=== PATIENT | male | born 1985 | race Caucasian/White ===

== ENCOUNTER 2016-04-22 08:27 | Emergency (ER) | payer MEDICAID ==
[2016-04-22 08:55] LABS: BASOPHILS 0.1 % (0.0-2.0); EOSINOPHILS 3.8 % (0-7); HEMATOCRIT 46.4 % (42.0-54.0); HEMOGLOBIN 16.4 g/dL (13.5-17.5); IMMATURE GRANULOCYTES 0.1 % (0-5); LYMPHOCYTES 26.3 % (15-50); MCH 31.1 pg (26.0-34.0); MCHC 35.3 g/dL (31.0-37.0); MEAN PLATELET VOLUME 11.2 fL (7.4-10.4); MONOCYTES 12.1 % (2-11); NEUTROPHILS 57.6 % (40-80); PLATELET COUNT 219 10x3/uL (130-400); RBC 5.27 10x6/uL (4.20-6.10); RDW 12.9 % (11.5-14.5); WBC 7.1 10x3/uL (4.8-10.8)
[2016-04-22 09:18] LABS: ALBUMIN 3.7 g/dL (3.4-5.0); ALKALINE PHOSPHATASE 61 U/L (46-116); ALT (SGPT) 15 U/L (10-68); AMYLASE - SERUM 63 U/L (25-115); BILIRUBIN - TOTAL 0.24 mg/dL (0.2-1.3); CALC OSMOLALITY 281 mosm/kg (275-300); CALCIUM 8.9 mg/dL (8.5-10.1); CARBON DIOXIDE 32.3 mmol/L (21.0-32.0); CHLORIDE - SERUM 102 mmol/L (98-107); CREATININE - SERUM 0.9 mg/dL (0.6-1.3); GLUCOSE 97 mg/dL (74-106); LIPASE 114 U/L (73-393); POTASSIUM - SERUM 3.9 mmol/L (3.5-5.1); PROTEIN - SERUM 7.4 g/dL (6.4-8.2); SODIUM 141 mmol/L (136-145); UREA NITROGEN 15 mg/dL (7-18); eGFR NON AFRICAN AMERICAN > 90 mL/min (90-120)
[2016-04-22 10:17] LABS: APPEARANCE CLEAR (CLEAR); BILIRUBIN NEGATIVE (NEGATIVE); COLOR YELLOW (YELLOW); GLUCOSE NEGATIVE (NEGATIVE); KETONE NEGATIVE (NEGATIVE); LEUKOCYTE ESTERASE NEGATIVE (NEGATIVE); NITRITE NEGATIVE (NEGATIVE); PROTEIN NEGATIVE (NEGATIVE); UROBILINOGEN NORMAL (NORMAL)
== END 2016-04-22 12:03 | disposition home or self-care (01) ==
LOC: D.ER 08:27
PROVIDERS: Family Medicine
DX: K52.9 Noninfective gastroenteritis and colitis, unspecified (principal)

== ENCOUNTER 2016-05-17 20:44 | Emergency (ER) | payer MEDICAID | END 2016-05-17 23:40 | disposition home or self-care (01) | LOC: D.ER 20:44 | DX: R10.13 Epigastric pain (principal); T14.8 Other injury of unspecified body region; X58.XXXA Exposure to other specified factors, initial encounter; Y93.9 Activity, unspecified; Y92.89 Other specified places as the place of occurrence of the external cause ==

== ENCOUNTER 2016-10-17 21:21 | Emergency (ER) | payer MEDICAID | END 2016-10-18 00:10 | disposition home or self-care (01) | LOC: D.ER 21:21 | DX: S61.211A Laceration without foreign body of left index finger without damage to nail, initial encounter (principal); W25.XXXA Contact with sharp glass, initial encounter; Y93.89 Activity, other specified; Y92.89 Other specified places as the place of occurrence of the external cause ==

== ENCOUNTER 2018-06-26 09:23 | Emergency (ER) | payer BC ==
[2018-06-26] MEDS ORDERED: MEDROL4 MG PO (09:29)
[2018-06-26] MEDS ORDERED: FLUTICASONE PRO16 GM NASAL (09:30)
[2018-06-26] MEDS ORDERED: CLEOCIN HCL300 MG PO (09:31)
[2018-06-26] MEDS ORDERED: XYLOCAINE HCL 2%5 ML UR (09:31)
[2018-06-26] MEDS ORDERED: CHLORHEXIDINE PO (09:33)
[2018-06-26] MEDS ORDERED: ZOFRAN4 MG PO (10:37)
== END 2018-06-26 11:05 | disposition home or self-care (01) ==
LOC: D.ER 09:23
DX: L55.0 Sunburn of first degree (principal)

== ENCOUNTER 2018-10-02 11:22 | Emergency (ER) | payer MEDICAID ==
[~2018-10-02] VITALS: Ht 182.9 cm; Wt 71.4 kg
[~2018-10-02 11:22] MED LIST: CHLORHEXIDINE PO; CLEOCIN HCL300 MG PO; FLUTICASONE PRO16 GM NASAL; MEDROL4 MG PO; XYLOCAINE HCL 2%5 ML UR; ZOFRAN4 MG PO
[2018-10-02 11:28] VITALS: Ht 182.9 cm; Wt 71.4 kg
[2018-10-02 13:25] LABS: APPEARANCE CLEAR (CLEAR); BILIRUBIN NEGATIVE (NEGATIVE); COLOR YELLOW (YELLOW); GLUCOSE NEGATIVE (NEGATIVE); KETONE NEGATIVE (NEGATIVE); NITRITE NEGATIVE (NEGATIVE); PROTEIN NEGATIVE (NEGATIVE); SPECIFIC GRAVITY 1.005 (1.005-1.020); UROBILINOGEN NORMAL (NORMAL)
[2018-10-02 13:28] LABS: BACTERIA MANY /hpf (NONE SEEN); EPITHELIAL CELLS 0-5 /hpf (0-5); RED CELLS - URINE 0-5 /hpf (0-5); WHITE CELLS - URINE >50 /hpf (0-5)
[2018-10-02] MEDS ORDERED: KEFLEX500 MG PO (13:53)
[2018-10-02] MEDS ORDERED: CLOTRIM ANTIFUN15 GM TOPICAL (13:53)
[2018-10-02 14:14] VITALS: BP 123/68
[2018-10-04 21:06] LABS: CHLAMYDIA TRACHOMATIS, NAA Negative (Negative)
== END 2018-10-02 14:24 | disposition home or self-care (01) ==
LOC: D.ER 11:22
PROVIDERS: Family Medicine
DX: A64 Unspecified sexually transmitted disease (principal); F19.10 Other psychoactive substance abuse, uncomplicated; B35.3 Tinea pedis